=== PATIENT | female | born 1960 | race Caucasian/White ===

== ENCOUNTER 2019-12-23 15:29 | Inpatient (IN) ==
[2019-12-23 16:07] LABS: Basophils # 0.1 10*3/uL (0.0-0.2); Basophils % 1.2 % (0.0-0.8); Eosinophils # 0.1 10*3/uL (0.0-0.87); Eosinophils % 1.7 % (0.00-10.9); Hematocrit 23.8 VOL% (35.7-47.0); Hemoglobin 7.1 GM/DL (12.0-16.0); Immature Granulocytes % 1.1 %; Immature Granulocytes Absolute 0.08 #; Lymphocytes # 1.9 10*3/uL (1.4-4.0); Lymphocytes % 24.3 % (21.3-54.2); Mean Corpuscular HGB Conc 29.8 GM/DL (32-36); Mean Corpuscular Volume 82.4 FL (87-102); Mean Platelet Volume 11.8 FL (9.6-12.0); Monocytes % 7.1 % (1.7-12.7); Neutrophils % 64.6 % (38.7-73.9); Platelet Count 396 T/CUMM (130-400); Red Blood Count 2.89 MC/CUMM (3.8-5.5); Red Cell Distribution Width 14.4 % (9.3-17.3); White Blood Count 7.6 T/CUMM (4-12)
[2019-12-23 16:28] LABS: Albumin 3.7 G/DL (3.4-5.0); Bilirubin,Total 0.7 MG/DL (0.2-1.0); Calcium 8.6 MG/DL (8.5-10.1); Osmolality,Calculated 276.7 MOS/KG (273-304)
[2019-12-23] MEDS ORDERED: SODIUM CHLORIDE 0.9% 1,000 ML IV PRN (17:30)
[2019-12-23] MEDS ORDERED: hydrALAZINE 20 MG/1 ML VIAL IV PRN (18:36)
[2019-12-23] MEDS ORDERED: guaiFENesin/DM ER 600-30 MG TABLET PO PRN (18:36)
[2019-12-23] MEDS ORDERED: ZALEPLON 5 MG CAPSULE PO PRN (18:36)
[2019-12-23] MEDS ORDERED: ALBUTEROL 2.5 MG/3 ML NEB RESP TX PRN (18:36)
[2019-12-23] MEDS ORDERED: ONDANSETRON 4 MG/2 ML VIAL IV PRN (18:36)
[2019-12-23] MEDS ORDERED: ACETAMINOPHEN 325 MG TABLET PO PRN (18:36)
[2019-12-23 20:21] LABS: Basophils # 0.1 10*3/uL (0.0-0.2); Basophils % 1.1 % (0.0-0.8); Eosinophils # 0.2 10*3/uL (0.0-0.87); Eosinophils % 1.9 % (0.00-10.9); Hematocrit 22.1 VOL% (35.7-47.0); Immature Granulocytes % 1.1 %; Immature Granulocytes Absolute 0.09 #; Lymphocytes # 1.9 10*3/uL (1.4-4.0); Lymphocytes % 22.5 % (21.3-54.2); Mean Corpuscular HGB Conc 28.5 GM/DL (32-36); Mean Platelet Volume 11.9 FL (9.6-12.0); Monocytes % 6.1 % (1.7-12.7); Neutrophils % 67.3 % (38.7-73.9); Platelet Count 388 T/CUMM (130-400); Red Blood Count 2.63 MC/CUMM (3.8-5.5); Red Cell Distribution Width 14.5 % (9.3-17.3); White Blood Count 8.4 T/CUMM (4-12)
[2019-12-23 20:22] LABS: Hemoglobin 6.3 GM/DL (12.0-16.0)
[2019-12-23 20:41] LABS: Alanine Aminotransferase 50 U/L (13-56); Albumin 3.4 G/DL (3.4-5.0); Alkaline Phosphatase 80 U/L (45-117); Aspartate Amino Transferase 33 U/L (0-37); Bilirubin,Total < 0.39 MG/DL (0.2-1.0); Blood Urea Nitrogen 18 MG/DL (7-18); Calcium 8.5 MG/DL (8.5-10.1); Estimated Glom Filtration Rate 99 ML/MIN; Glucose 101 MG/DL (74-106); Osmolality,Calculated 276.7 MOS/KG (273-304); Total Protein 6.8 G/DL (6.4-8.3)
[2019-12-23 20:50] LABS: Folate 12.3 NG/ML (5.4-24.0); Vitamin B12 411 PG/ML (211-911)
[2019-12-23 21:02] LABS: Anisocytosis 1+; Macrocytosis Slight; Microcytosis 1+
[2019-12-23 21:03] LABS: Platelet Estimate Normal; Polychromasia Slight
[2019-12-23 21:26] LABS: Sedimentation Rate-Westergren 58 MM/HR (0-30)
[2019-12-23] MEDS: PANTOPRAZOLE 40 MG VIAL IV SCH (22:33)
[2019-12-23] MEDS: CYCLOBENZAPRINE 10 MG TABLET PO SCH (22:34)
[2019-12-24] MEDS ORDERED: IRON SUCROSE 300 MG in SODIUM CHLORIDE 0.9% 100 ML IV ONE (00:30)
[2019-12-24 08:17] LABS: Basophils # 0.1 10*3/uL (0.0-0.2); Basophils % 1.1 % (0.0-0.8); Eosinophils # 0.2 10*3/uL (0.0-0.87); Eosinophils % 2.3 % (0.00-10.9); Immature Granulocytes % 1.4 %; Immature Granulocytes Absolute 0.12 #; Lymphocytes # 2.1 10*3/uL (1.4-4.0); Lymphocytes % 25.5 % (21.3-54.2); Mean Corpuscular Volume 84.1 FL (87-102); Mean Platelet Volume 11.7 FL (9.6-12.0); Monocytes % 7.1 % (1.7-12.7); Neutrophils % 62.6 % (38.7-73.9); Platelet Count 345 T/CUMM (130-400); Red Blood Count 3.33 MC/CUMM (3.8-5.5); Red Cell Distribution Width 15.9 % (9.3-17.3); White Blood Count 8.3 T/CUMM (4-12)
[2019-12-24 08:18] LABS: Hemoglobin 8.4 GM/DL (12.0-16.0)
[2019-12-24 08:48] LABS: Albumin 3.1 G/DL (3.4-5.0); Bilirubin,Total 0.5 MG/DL (0.2-1.0); Calcium 8.6 MG/DL (8.5-10.1); Osmolality,Calculated 278.5 MOS/KG (273-304); Total Protein 6.4 G/DL (6.4-8.3)
[2019-12-24] MEDS: PANTOPRAZOLE 40 MG VIAL IV SCH (10:46)
[2019-12-24] MEDS: VENLAFAXINE XR 75 MG CAPSULE PO SCH (10:46)
[2019-12-24] MEDS: DILTIAZEM CD 300 MG CAPSULE PO SCH (12:38)
[2019-12-24 16:58] LABS: Hematocrit 27.7 VOL% (35.7-47.0); Hemoglobin 8.5 GM/DL (12.0-16.0)
[2019-12-24] MEDS: FERROUS SULFATE 325 MG TABLET PO SCH (21:27)
[2019-12-24] MEDS: CYCLOBENZAPRINE 10 MG TABLET PO SCH (21:27)
[2019-12-25] MEDS ORDERED: PANTOPRAZOLE 40 MG TABLET PO SCH (09:00)
[2019-12-25] MEDS: DILTIAZEM CD 300 MG CAPSULE PO SCH (10:13)
[2019-12-25] MEDS: VENLAFAXINE XR 75 MG CAPSULE PO SCH (10:14)
[2019-12-25] MEDS: FERROUS SULFATE 325 MG TABLET PO SCH (10:14)
[2019-12-25 12:56] VITALS: BP 132/70
[2019-12-27 09:23] LABS: Hemoglobin A1 (Alkaline) 98.1 % (96.5-98.5); Hemoglobin A2 (Alkaline) 1.9 % (1.5-3.5)
== END 2019-12-25 13:34 | disposition home or self-care (01) | DRG 812 ==
LOC: N.ED 15:29 → N.EDINP 18:36 → N.5E 19:41
PROVIDERS: ADMIT Internal Medicine Cardiovascular Disease; ATTEND Internal Medicine Cardiovascular Disease